=== PATIENT | male | born 1960 | race Two or more races ===

== ENCOUNTER 2020-03-08 17:31 | Emergency (ER) | payer BC ==
[~2020-03-08] VITALS: Ht 193 cm; Wt 111.1 kg
[~2020-03-08 17:31] MED LIST: IBUP-2213 PO
[2020-03-08 17:36] VITALS: BP 120/67
--- NOTE | 2020-03-08 17:43 | NUR ---
PT AMB TO BED 6.
--- NOTE | 2020-03-08 17:49 | NUR ---
60 Y/O M C/C LEFT KNEE PAIN AND LOW BACK PAIN X 13 MONTHS. PER PT WORK INJURY RELATED, TAKEN TO PAIN MANAGEMENT FOR TREATMENT OF WORK INJURY. PT SENT BACK TO WORK YESTERDAY. PER PT PLACED ON LIGHT DUTY AND AGGRAVATED THE PAIN. PT PRESENTS WITH 8/10 LEFT KNEE/LOW BACK PAIN. PER PT NO LONGER PAIN MANAGEMENT OFFERED BY WORK AND PRESENTED TO ER FOR PAIN MANAGEMENT. PT NKA. NO HX. NO RX. NO NVD. SIDE RAIL X1. AMBULATED TO BED.
--- NOTE | 2020-03-08 18:00 | NUR ---
KRISTI Bynum evaluating pt at bedside
[2020-03-08] MEDS ORDERED: KETOROLAC 60 MG/2 ML VIAL IM ONE (18:30)
[2020-03-08 18:56] VITALS: BP 120/67
== END 2020-03-08 18:57 | disposition home or self-care (01) ==
LOC: MED 17:31
DX: M25.562 Pain in left knee (principal); M54.5 Low back pain; Z88.6 Allergy status to analgesic agent; Z79.899 Other long term (current) drug therapy
CPT/HCPCS: 96372; 99283; J1885